=== PATIENT | male | born 1955 | race Caucasian/White ===

== ENCOUNTER 2021-09-03 21:54 | Emergency (ER) | payer MEDICARE, OTHER ==
[~2021-09-03 21:54] MED LIST: Lidocaine 2% 20 ML MDV INFILT ONE
== END 2021-09-03 22:51 | disposition home or self-care (01) ==
LOC: LB.ED 21:54
DX: S61.212A Laceration without foreign body of right middle finger without damage to nail, initial encounter (principal); W26.0XXA Contact with knife, initial encounter
CPT/HCPCS: 12002; 99281; 99283-25

== ENCOUNTER 2023-01-09 12:03 | Emergency (ER) | payer MEDICARE, OTHER ==
[2023-01-09] MEDS ORDERED: Amoxicillin 500 MG Cap PO ONE (12:32)
[2023-01-09] MEDS ORDERED: Bacitracin Oint 1 GM U/D Packet TOP ONE (12:35)
== END 2023-01-09 12:45 | disposition home or self-care (01) ==
LOC: LB.ED 12:03
DX: S60.352A Superficial foreign body of left thumb, initial encounter (principal); Z88.1 Allergy status to other antibiotic agents; W45.8XXA Other foreign body or object entering through skin, initial encounter
CPT/HCPCS: 99283; A9270